=== PATIENT | male | born 1945 | race Caucasian/White ===

== ENCOUNTER → 2019-12-09 14:46 | Outpatient (BNVA) | payer MEDICARE, SELFPAY | PROVIDERS: PCP Internal Medicine Endocrinology, Diabetes & Metabolism; Visit Provider Urology | DX: Z76.89 Persons encountering health services in other specified circumstances (principal) | CPT/HCPCS: 99212 ==

== ENCOUNTER 2020-06-14 13:58 | Outpatient (REF) | payer MEDICARE, SELFPAY ==
--- NOTE | ~2020-06-14 | US_ITS ---
EXAMINATION: US RETROPERITONEAL LIMITED (RENAL ONLY) CLINICAL INFORMATION: Renal stones. COMPARISON: Ultrasound renal 10/12/2015 and 07/28/2013. TECHNIQUE: Real-time imaging of the kidneys. FINDINGS: RIGHT KIDNEY: 11.2 x 4.4 x 5.1 cm (SAG x AP x TRV). The kidney is normal in size, contour, and echogenicity. There is right renal cortical thinning. There is a 3.1 x 2.6 x 2.1 cm cyst exophytic to the lower pole. No renal calculi or hydronephrosis. LEFT KIDNEY: 12.4 x 5.9 x 5.7 cm (SAG x AP x TRV). The kidney is normal in size, contour, and echogenicity. There is left renal cortical thinning. There is a large 11.4 x 10.3 x 9 cm cyst exophytic to the midpole and 1.8 x 1.5 x 2.3 cm peripelvic cyst in the mid to lower pole. No renal calculi or hydronephrosis. US/US renal BI IMPRESSION: Bilateral renal cysts. Largest cyst measures 11.4 x 10.3 x 9 cm exophytic to the midpole of the left kidney and is stable. No stone seen. There may be bilateral renal cortical thinning.
== END 2020-06-14 13:59 | disposition home or self-care (01) ==
LOC: HO.US 13:58
PROVIDERS: PCP Internal Medicine Endocrinology, Diabetes & Metabolism; Visit Provider Urology
DX: N20.0 Calculus of kidney (principal); N28.1 Cyst of kidney, acquired
CPT/HCPCS: 76775

== ENCOUNTER → 2020-07-13 10:10 | Outpatient (BNVA) | payer MEDICARE, SELFPAY | PROVIDERS: Visit Provider Urology | DX: N28.1 Cyst of kidney, acquired (principal); N39.0 Urinary tract infection, site not specified; E11.49 Type 2 diabetes mellitus with other diabetic neurological complication; R33.9 Retention of urine, unspecified; Z79.4 Long term (current) use of insulin | CPT/HCPCS: 99212 ==

== ENCOUNTER → 2020-08-17 12:58 | Outpatient (BNVA) | payer MEDICARE, SELFPAY | PROVIDERS: PCP Internal Medicine Endocrinology, Diabetes & Metabolism; Visit Provider Urology | DX: N39.0 Urinary tract infection, site not specified (principal); R33.9 Retention of urine, unspecified; E11.49 Type 2 diabetes mellitus with other diabetic neurological complication; Z79.4 Long term (current) use of insulin | CPT/HCPCS: 52000; 99212 ==

== ENCOUNTER → 2021-05-10 14:05 | Outpatient (BNVA) | payer MEDICARE, SELFPAY | PROVIDERS: PCP Internal Medicine Endocrinology, Diabetes & Metabolism; Visit Provider Urology | DX: E11.49 Type 2 diabetes mellitus with other diabetic neurological complication (principal); N39.0 Urinary tract infection, site not specified; N28.1 Cyst of kidney, acquired; Z79.4 Long term (current) use of insulin | CPT/HCPCS: 51798; 99212 ==

== ENCOUNTER 2022-04-24 13:55 | Outpatient (REF) | payer MEDICARE, SELFPAY ==
--- NOTE | ~2022-04-24 | US_ITS ---
EXAMINATION: US RETROPERITONEAL LIMITED (RENAL ONLY) CLINICAL INFORMATION: Cyst of kidney, acquired. COMPARISON: Renal ultrasound 06/14/2020 and 10/12/2015. TECHNIQUE: Real-time imaging of the kidneys. FINDINGS: RIGHT KIDNEY: 12.0 x 4.8 x 5.3 cm (SAG x AP x TRV). The kidney is normal in size, contour, and echogenicity. Renal cortical thickness is normal. No renal calculi or hydronephrosis. Simple cysts largest in the lower pole measuring 2.8 cm, for which no imaging follow-up is recommended. LEFT KIDNEY: 13.3 x 4.8 x 4.0 cm (SAG x AP x TRV). The kidney is normal in size, contour, and echogenicity. Renal cortical thickness is normal. No renal calculi or hydronephrosis. Simple cysts including a dominant very large approximately 12.4 cm cyst exophytically from the medial surface, for which no imaging follow-up is recommended. US/US renal BI IMPRESSION: 1. No acute sonographic abnormalities. 2. Bilateral simple renal cysts for which no imaging follow-up is recommended.
== END 2022-04-24 13:56 | disposition home or self-care (01) ==
LOC: HO.US 13:55
PROVIDERS: PCP Internal Medicine Endocrinology, Diabetes & Metabolism; Visit Provider Urology
DX: N28.1 Cyst of kidney, acquired (principal)
CPT/HCPCS: 76775

== ENCOUNTER → 2022-05-09 13:48 | Outpatient (BNVA) | payer MEDICARE, SELFPAY | PROVIDERS: PCP Internal Medicine Endocrinology, Diabetes & Metabolism; Visit Provider Urology | DX: N39.0 Urinary tract infection, site not specified (principal); N28.1 Cyst of kidney, acquired; R33.9 Retention of urine, unspecified | CPT/HCPCS: 99212 ==

== ENCOUNTER 2022-09-01 10:33 | Outpatient (REF) | payer MEDICARE, SELFPAY ==
--- NOTE | ~2022-09-01 | XR_ITS ---
EXAMINATION: XR HIP, RIGHT CLINICAL INFORMATION: Right hip pain COMPARISON: None available. TECHNIQUE: Two views of the right hip. FINDINGS: No acute fracture or subluxation. The femoral acetabular joint space appears maintained. There are proliferative changes involving the superolateral aspect of the acetabulum and there are cystic/erosive changes of the proximal femur and acetabulum greatest superolaterally. There is some proliferative change involving the greater trochanter. Surgical clips project over the scrotum and there are vascular calcifications. XR/XR hip RT min 2V IMPRESSION: No acute fracture or subluxation. There are proliferative changes involving the acetabulum and proximal femur.
== END 2022-09-01 10:34 | disposition home or self-care (01) ==
LOC: HO.HOSX 10:33
PROVIDERS: Visit Provider Orthopaedic Surgery
DX: M25.551 Pain in right hip (principal); M54.50 Low back pain, unspecified; Z79.899 Other long term (current) drug therapy
CPT/HCPCS: 73502; 99202

== ENCOUNTER 2022-09-01 11:21 | Outpatient (AMB) | payer MEDICARE, SELFPAY ==
--- NOTE | 2022-09-01 11:46 | MHC.OFFVIS ---
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 He states that his symptoms have been present for approximately 10 years. He used to do quite a bit of lifting working for the [employer]. He denies any numbness or tingling in either of his legs. He continues to walk approximately 3 miles per day for exercise. Allergies oxycodone Allergy (Unknown, Verified 05/09/22 13:53) memory loss No Known Allergies [No Known Allergies*] Allergy (Verified 05/09/22 13:53) Medication List - Last Reconciled 09/01/22 by Homar Estrella MD acetaminophen ER (Tylenol Arthritis Pain) 1,300 mg PO Q12H amlodipine 10 mg PO DAILY atorvastatin 10 mg PO DAILY blood sugar diagnostic As directed dulaglutide 1.5 mg subcut QWEEK empagliflozin (Jardiance) 10 mg PO DAILY fenofibrate 160 mg PO DAILY metoprolol tartrate 50 mg PO BID modafinil 100 mg PO QAM multivitamin 1 tab PO DAILY nitrofurantoin macrocrystal 100 mg PO DAILY 90 days pioglitazone 30 mg PO DAILY sitagliptin phosphate 50 mg PO DAILY tamsulosin 0.4 mg PO DAILY PFSH Medical History Arthritis of both knees Depression DM w/o complication type II, uncontrolled GERD (gastroesophageal reflux disease) Primary osteoarthritis of left knee Primary osteoarthritis of right knee Surgical History History of surgery Social History (Updated 09/01/22 @ 12:00 by QUINN Garrison) Patient Tobacco Use Status: Former Tobacco user Current occupational status: disabled Physical Exam Vital Signs: BMI result Body Mass Index 28.0 Const Other: Well-nourished well-developed very friendly male awake alert and oriented x3 in no acute distress Extrem Other: Bilateral lower extremity examination shows good capillary refill, no skin lesions noted, normal sensation light touch Low back examination shows right-sided paraspinal muscle tenderness, mild pain with range of motion Right hip examination shows mild discomfort with range of motion, no tenderness over his bursa Results Reviewed Results Reviewed: X-rays of the patient's right hip show a mild diffuse joint space narrowing, no acute bony abnormalities Assessment & Plan Assessment & Plan (1) Right hip pain: Code(s): M25.551 - Pain in right hip (2) Low back pain: Code(s): M54.50 - Low back pain, unspecified Plan Mr. Saba presents with pain along the posterior aspect of his right hip most likely due to lumbar spine degenerative disc disease or sacroiliitis. I had a lengthy discussion with the patient regarding the treatment options. At this point the patient's symptoms are tolerable to him. We will hold off on getting an MRI of his lumbar spine. Activity modifications were discussed at length with the patient. He will follow up with me on an as-needed basis should his symptoms worsen in any way. Feel free to call me at any time should questions regarding his orthopedic management arise. I spent 23 minutes in reviewing the patient's records and imaging studies, seeing the patient and documenting in the medical record. Orders: Orders XR hip RT min 2V Today M25.551 - Pain in right hip Coding Level of Care Code New Pt Level 2 (34445) Diagnoses Right hip pain M25.551 Low back pain M54.50
[2022-09-01 11:54] VITALS: BMI 28.0
== END 2022-09-01 16:00 ==
PROVIDERS: PCP Internal Medicine Endocrinology, Diabetes & Metabolism; Visit Provider Physician Assistant
DX: M25.551 Pain in right hip (principal); M54.50 Low back pain, unspecified
CPT/HCPCS: 99202

== ENCOUNTER 2022-11-07 14:30 | Outpatient (AMB) | payer MEDICARE, SELFPAY ==
--- NOTE | 2022-11-07 14:31 | A.OFFVIS_ITS ---
Intake Intake Visit Reasons: 6m/urine Intake Note: Patient is Present for Telephone Follow Up Urology Medication: Macrobid, Tamsulosin Antibiotic Allergies: None Blood Thinners: None Pharmacy: [facility] Allergies oxycodone Allergy (Unknown, Verified 05/09/22 13:53) memory loss No Known Allergies [No Known Allergies*] Allergy (Verified 05/09/22 13:53) Medication List - Last Reconciled 11/07/22 by Devon Hicks MD acetaminophen ER (Tylenol Arthritis Pain) 1,300 mg PO Q12H amlodipine 10 mg PO DAILY blood sugar diagnostic As directed dulaglutide 1.5 mg subcut QWEEK metoprolol tartrate 50 mg PO BID modafinil 100 mg PO QAM multivitamin 1 tab PO DAILY nitrofurantoin macrocrystal 100 mg PO DAILY 90 days pioglitazone 30 mg PO DAILY sitagliptin phosphate 50 mg PO DAILY tamsulosin 0.4 mg PO DAILY HPI HPI Comments History of Present Illness Details Александр is a pleasant male. He is a patient of Dr. Berry. 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 Stable compared to prior. - 05/04 renal ultrasound large bilateral renal cysts stable BPH Three prior procedures Office based Last procedure 2009 - for per description sounds like thermocore PFSH Medical History Arthritis of both knees Depression DM w/o complication type II, uncontrolled GERD (gastroesophageal reflux disease) Primary osteoarthritis of left knee Primary osteoarthritis of right knee Surgical History History of surgery Social History Patient Tobacco Use Status: Former Tobacco user Current occupational status: disabled Review of Systems Const Denies chills and Denies fever(s) Card Reports no additional complaints and Denies syncope Resp Denies cough GI Denies abdominal pain and Denies heartburn Reports as per HPI and Denies change in libido Neuro Denies syncope Psych Denies change in libido Endo Denies change in libido Physical Exam Const General: cooperative, healthy appearing, comfortable and no acute distress Orientation/consciousness: patient oriented x3 HEENT Face and sinus: Yes normal facial exam Mouth: moist mucous membranes Neck Neck: Yes normal visual inspection, Yes full ROM and Yes trachea midline Chest Chest palpation & inspection: normal inspection of the chest Resp Effort & Inspection: normal respiratory effort, able to speak in complete sentences and no respiratory distress GI Inspection: Yes normal to inspection Back/Spine/Pelvis Cervical Spine: normal cervical lordosis Thoracic/Lumbar Spine: thoracic and lumbar spine normal to inspection Skin General skin exam: no rashes or lesions noted Neuro General: patient oriented x3, gait normal, tone normal and moves all extremities Extrem General: Yes normal to inspection and Yes capillary refill normal Assessment & Plan Assessment & Plan (1) Renal cyst: Code(s): N28.1 - Cyst of kidney, acquired (2) Diabetes mellitus with neurologic complication, with long-term current use of insulin: Code(s): E11.49 - Type 2 diabetes mellitus with other diabetic neurological complication; Z79.4 - terminal operations supervisor (current) use of insulin (3) Recurrent UTI: Code(s): N39.0 - Urinary tract infection, site not specified Plan Six month follow-up imaging Orders: Orders US renal BI 6 Months N28.1 - Cyst of kidney, acquired Medications: Refilled nitrofurantoin macrocrystal must administer with a meal/food 100 mg PO DAILY 90 caps 1RF 90 days Patient Instructions: Imaging studies, laboratory and physical exam results were discussed and rev iewed in detail. No major barriers to patient understanding were identified. An opportunity to ask questions regarding the treatment plan was provided. All questions were answered. The patient expressed understanding and agreement with the above treatment plan. The patient is aware they should contact our office by phone for worsening of their current condition or the appearance of new urologic symptoms. Compliance is encouraged with any medications and followup testing that is ordered. It is a privilege to participate in the urologic care of your patient. If you have any questions or concerns regarding treatment for the above conditions, or other urologic issues, please do not hesitate to contact me. The office telephone contact is [phone]. This note is constructed using voice recognition software. While every effort has been made to ensure accuracy senior communications engineer errors may have been included. Yours sincerely, Dr Devon Hicks MD, [facility] - Urology Providers of Expert, Compassionate Care for the Genitourinary System Telehealth Telehealth Location of provider rendering services: practice address Location of patient: address on file Patient Identification confirmed using: Name, : Yes Telehealth method: voice only Patient verbally consented to treatment: Yes Patient verbally consented to billing insurance company: Yes Patient informed of any privacy concerns related to visit: Yes Coding Level of Care Code Est Pt Level 3 (86264) Diagnoses Renal cyst N28.1 Diabetes mellitus with neurologic complication, with long-term current use of insulin E11.49; Z79.4 Recurrent UTI N39.0
== END 2022-11-07 14:59 | disposition home or self-care (01) ==
LOC: HO.HUSH 14:30
PROVIDERS: PCP Internal Medicine Endocrinology, Diabetes & Metabolism; Visit Provider Urology
DX: N28.1 Cyst of kidney, acquired (principal); E11.49 Type 2 diabetes mellitus with other diabetic neurological complication; Z79.4 Long term (current) use of insulin; N39.0 Urinary tract infection, site not specified
CPT/HCPCS: 99213

== ENCOUNTER → 2022-11-07 14:30 | Outpatient (BNVA) | payer MEDICARE, SELFPAY | PROVIDERS: PCP Internal Medicine Endocrinology, Diabetes & Metabolism; Visit Provider Urology | DX: N28.1 Cyst of kidney, acquired (principal); N39.0 Urinary tract infection, site not specified; N40.0 Benign prostatic hyperplasia without lower urinary tract symptoms; E11.49 Type 2 diabetes mellitus with other diabetic neurological complication; Z79.4 Long term (current) use of insulin | CPT/HCPCS: 99212 ==

== ENCOUNTER 2023-04-19 13:20 | Outpatient (REF) | payer MEDICARE, SELFPAY ==
--- NOTE | ~2023-04-19 | US_ITS ---
EXAMINATION: US RETROPERITONEAL LIMITED (RENAL ONLY) CLINICAL INFORMATION: Cyst of kidney, acquired. COMPARISON: Renal ultrasound 04/24/2022 and 06/14/2020. TECHNIQUE: Real-time imaging of the kidneys. FINDINGS: RIGHT KIDNEY: 11.8 x 4.8 x 5.0 cm (SAG x AP x TRV). There are 3.2 x 2.5 x 2.5 cm lower pole and 1.2 x 1.2 x 0.7 cm mid benign simple cysts. The kidney otherwise appears unremarkable in size, contour, and echogenicity. Renal cortical thickness is normal. No renal calculi or hydronephrosis. LEFT KIDNEY: 12.5 x 5.8 x 4.7 cm (SAG x AP x TRV). There are 13.3 x 10.3 x 8.1 cm mid lateral and 1.7 x 1.6 x 0.9 cm mid benign simple cysts. The kidney otherwise appears unremarkable in size, contour, and echogenicity. Renal cortical thickness is normal. No renal calculi or hydronephrosis. US/US renal BI IMPRESSION: 13.3 cm or less, benign bilateral simple cysts for which no further dedicated follow up imaging is indicated.
== END 2023-04-19 13:21 | disposition home or self-care (01) ==
LOC: HO.US 13:20
PROVIDERS: PCP Internal Medicine Endocrinology, Diabetes & Metabolism; Visit Provider Urology
DX: N28.1 Cyst of kidney, acquired (principal)
CPT/HCPCS: 76775

== ENCOUNTER 2023-05-11 13:24 | Outpatient (AMB) | payer MEDICARE, SELFPAY ==
--- NOTE | 2023-05-11 13:42 | A.OFFVIS_ITS ---
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 Design Drafter Required: No Accompanied by: Self / Same As Patient Allergies oxycodone Allergy (Unknown, Verified 05/11/23 13:53) memory loss No Known Allergies [No Known Allergies*] Allergy (Verified 05/11/23 13:53) Medication List - Last Reconciled 05/11/23 by Devon Hicks MD blood sugar diagnostic As directed blood-glucose sensor (FreeStyle Lawrence 3 Sensor device) As directed multivitamin 1 tab PO DAILY nitrofurantoin macrocrystal 100 mg PO DAILY 90 days sitagliptin phosphate 50 mg PO DAILY tadalafil 5 mg PO DAILY 90 days tadalafil 20 mg PO ONCE PRN 30 days tamsulosin 0.4 mg PO DAILY HPI HPI Comments History of Present Illness Details Александр is a pleasant male. He is a patient of Dr. Berry. 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 Stable compared to prior. - 05/04 renal ultrasound large bilateral renal cysts stable BPH Three prior procedures Office based Last procedure 2009 - for per description sounds like thermocore PFSH Medical History Depression GERD (gastroesophageal reflux disease) DM w/o complication type II, uncontrolled Primary osteoarthritis of left knee Primary osteoarthritis of right knee Arthritis of both knees Surgical History History of surgery Social History Patient Tobacco Use Status: Former Tobacco user Current occupational status: disabled Review of Systems Const Denies chills and Denies fever(s) Card Reports no additional complaints and Denies syncope Resp Denies cough GI Denies abdominal pain and Denies heartburn Reports as per HPI and Denies change in libido Neuro Denies syncope Psych Denies change in libido Endo Denies change in libido Physical Exam Const General: cooperative, healthy appearing, comfortable and no acute distress Orientation/consciousness: patient oriented x3 HEENT Face and sinus: Yes normal facial exam Mouth: moist mucous membranes Neck Neck: Yes normal visual inspection, Yes full ROM and Yes trachea midline Chest Chest palpation & inspection: normal inspection of the chest Resp Effort & Inspection: normal respiratory effort, able to speak in complete sentences and no respiratory distress GI Inspection: Yes normal to inspection Back/Spine/Pelvis Cervical Spine: normal cervical lordosis Thoracic/Lumbar Spine: thoracic and lumbar spine normal to inspection Skin General skin exam: no rashes or lesions noted Neuro General: patient oriented x3, gait normal, tone normal and moves all extremities Extrem General: Yes normal to inspection and Yes capillary refill normal Office Procedures Post Void Residual Post Residual Void Post Void Residual (PVR): 0 [id number] Void Residual by ultrasound Results AMB Urinalysis, Automated UA Leukoctes 0 Jaime/uL Last Edit by Emerald Steele [facility] on 05/11/23 14 :07 UA Nitrite Negative Last Edit by Emerald Steele [facility] on 05/11/23 14: 07 UA Urobilinogen 0.2 mg/dL Last Edit by Emerald Steele [facility] on 4 14:07 UA Protein 15 mg/dL Last Edit by Emerald Steele [facility] on 05/11/23 14:0 7 UA pH 6.0 Last Edit by Emerald Steele [facility] on 05/11/23 14:07 UA Blood 0 Valdez/uL Last Edit by Emerald Steele [facility] on 05/11/23 14:07 UA Specific [place] 1.015 Last Edit by Emerald Steele [facility] on 14:07 UA Ketone Negative Last Edit by Emerald Steele [facility] on 05/11/23 14:0 7 UA Bilirubin 0 mg/dL Last Edit by Emerald Steele [facility] on 05/11/23 14: 07 UA Glucose 0 mg/dL Last Edit by Emerald Steele CMA on 05/11/23 14:07 Results Reviewed Results Reviewed: Laboratory Last Values Urine pH (Auto) 6.0 05/11/23 13:52 Specific [place] (Auto) 1.015 05/11/23 13:52 Urine Protein (Auto) 15 mg/dL 05/11/23 13:52 Glucose (UA)(Auto) 0 mg/dL 05/11/23 13:52 Urine Ketones (Auto) Negative 05/11/23 13:52 Urine Blood (Auto) 0 Valdez/uL 05/11/23 13:52 Urine Nitrite (Auto) Negative 05/11/23 13:52 Urine Bilirubin (Auto) 0 mg/dL 05/11/23 13:52 Urine Urobilinogen (Auto) 0.2 mg/dL 05/11/23 13:52 Leukocyte Esterase (Auto) 0 Jaime/uL 05/11/23 13:52 Assessment & Plan Assessment & Plan (1) Recurrent UTI: Code(s): N39.0 - Urinary tract infection, site not specified (2) Erectile dysfunction associated with type 2 diabetes mellitus: Code(s): E11.69 - Type 2 diabetes mellitus with other specified complication; N52.1 - Erectile dysfunction due to diseases classified elsewhere Plan Three-month follow-up tele Orders: Orders AMB Urinalysis Automated Today R33.9 - Retention of urine, unspecified AMB Post Void Residual by ultrasound Today R33.9 - Retention of urine, unspecified Medications: New tadalafil 5 mg PO DAILY 90 days 90 tabs 0RF sexual activity E11.69 - Type 2 diabetes mellitus with other specified complication, N52.1 - Erectile dysfunction due to diseases classified elsewhere tadalafil On demand medication take 60 minutes before intended activity 20 mg PO ONCE 30 days PRN 30 tabs 0RF sexual activity E11.69 - Type 2 diabetes mellitus with other specified complication, N52.1 - Erectile dysfunction due to diseases classified elsewhere blood-glucose sensor (FreeStyle Lawrence 3 Sensor device) As directed 2 ea 0RF E11.69 - Type 2 diabetes mellitus with other specified complication, N52.1 - Erectile dysfunction due to diseases classified elsewhere Patient Instructions: Imaging studies, laboratory and physical exam results were discussed and reviewed in detail. No major barriers to patient understanding were identified. An opportunity to ask questions regarding the treatment plan was provided. All questions were answered. The patient expressed understanding and agreement with the above treatment plan. The patient is aware they should contact our office by phone for worsening of their current condition or the appearance of new urologic symptoms. Compliance is encouraged with any medications and followup testing that is ordered. It is a privilege to participate in the urologic care of your patient. If you have any questions or concerns regarding treatment for the above conditions, or other urologic issues, please do not hesitate to contact me. The office telephone contact is [phone]. This note is constructed using voice recognition software. While every effort has been made to ensure accuracy signals officer errors may have been included. Yours sincerely, Dr Devon Hicks MD, [facility] - Urology Providers of Expert, Compassionate Care for the Genitourinary System Coding Level of Care Code Est Pt Level 4 (96817) Diagnoses Recurrent UTI N39.0 Erectile dysfunction associated with type 2 diabetes mellitus E11.69; N52.1 CPT Codes Post Residual Void - PVR CPT Code: 16005-Rrxj Void Residual by ultrasound ([id number])
== END 2023-05-11 14:28 | disposition home or self-care (01) ==
PROVIDERS: PCP Internal Medicine Endocrinology, Diabetes & Metabolism; Visit Provider Urology
DX: N39.0 Urinary tract infection, site not specified (principal); E11.69 Type 2 diabetes mellitus with other specified complication; N52.1 Erectile dysfunction due to diseases classified elsewhere; R33.9 Retention of urine, unspecified
CPT/HCPCS: 99214

== ENCOUNTER → 2023-05-11 13:24 | Outpatient (BNVA) | payer MEDICARE, SELFPAY | PROVIDERS: PCP Internal Medicine Endocrinology, Diabetes & Metabolism; Visit Provider Urology | DX: N40.1 Benign prostatic hyperplasia with lower urinary tract symptoms (principal); R33.8 Other retention of urine; N39.0 Urinary tract infection, site not specified; E11.69 Type 2 diabetes mellitus with other specified complication; N52.1 Erectile dysfunction due to diseases classified elsewhere; N28.1 Cyst of kidney, acquired | CPT/HCPCS: 51798; 81003; 99212 ==

== ENCOUNTER 2023-08-14 15:45 | Outpatient (AMB) | payer MEDICARE, SELFPAY ==
--- NOTE | 2023-08-14 15:46 | MHC.OFFVIS ---
Intake Visit Reasons: 3M Med Review(Tadalafil) Intake Note: Patient is Present for Telephone Follow Up For Urology Med: Tadalafil Antibiotic Allergy:None Blood Thinner: None Allergies oxycodone Allergy (Unknown, Verified 05/11/23 13:53) memory loss No Known Allergies [No Known Allergies*] Allergy (Verified 05/11/23 13:53) HPI Comments Details: Александр is a pleasant male. He is a patient of Dr. Berry. He is seen for the following urologic issues - BPH - recurring UTI - renal cyst - erectile dysfunction Telemedicine Evaluation 15 min Consultation [facility] attempted Six-month follow-up Has noticed stabilized bladder with tadalafil. Will continue. He will continue with on demand medication. Would expect continued gradual improvement Discussed CGM - he has just started and is finding useful insight Recurring UTI Occurred twice during a 2019 Background diabetic requiring insulin Ended up with hospital admissions both times fire ambulance which he cannot remember Placed on suppression Macrodantin which appears to be effective Cystoscopy 08/02 large hypotonic bladder Renal cyst Stable Followed for 20 years Renal imaging 07/02 renal ultrasound bilateral renal cyst, left side 11 cm, right side 4 cm. Stable compared to prior. - 05/04 renal ultrasound large bilateral renal cysts stable Lower Urinary Tract Symptoms Three prior procedures Office based Last procedure 2009 - for per description sounds like thermocore PFSH Medical History Depression GERD (gastroesophageal reflux disease) DM w/o complication type II, uncontrolled Primary osteoarthritis of left knee Primary osteoarthritis of right knee Arthritis of both knees Surgical History History of surgery Social History Patient Tobacco Use Status: Former Tobacco user Current occupational status: disabled Review of Systems Const All systems reviewed & are unremarkable except as noted in HPI and below Reports no additional complaints Resp Reports no additional complaints GI Reports no additional complaints Reports as per HPI Musc Reports no additional complaints Physical Exam Telemedicine evaluation Appropriate responses Regular breathing rate and rhythm HEENT Head: Yes normal to inspection Ears: hearing grossly normal bilaterally Eyes General: appearance normal, both eyes and all related structures Neck Neck: Yes normal visual inspection Chest Chest palpation & inspection: normal inspection of the chest Resp Effort & Inspection: normal respiratory effort and able to speak in complete sentences Telehealth Telehealth Location of provider rendering services: practice address Location of patient: address on file Patient Identification confirmed using: Name, : Yes Telehealth method: voice only Patient verbally consented to treatment: Yes Patient verbally consented to billing insurance company: Yes Patient informed of any privacy concerns related to visit: Yes Assessment & Plan Assessment & Plan (1) Recurrent UTI: Code(s): N39.0 - Urinary tract infection, site not specified Category: Medical (2) Erectile dysfunction associated with type 2 diabetes mellitus: Code(s): E11.69 - Type 2 diabetes mellitus with other specified complication; N52.1 - Erectile dysfunction due to diseases classified elsewhere Category: Medical (3) Urinary retention with incomplete bladder emptying: Code(s): R33.9 - Retention of urine, unspecified Category: Medical Plan Continue current medications Six-month follow-up Medications: Refilled tadalafil 5 mg PO DAILY 90 days 90 tabs 1RF sexual activity E11.69 - Type 2 diabetes mellitus with other specified complication, N52.1 - Erectile dysfunction due to diseases classified elsewhere tadalafil On demand medication take 60 minutes before intended activity 20 mg PO ONCE 30 days PRN 30 tabs 1RF sexual activity E11.69 - Type 2 diabetes mellitus with other specified complication, N52.1 - Erectile dysfunction due to diseases classified elsewhere Patient Instructions: Imaging studies, laboratory and physical exam results were discussed and reviewed in detail. No major barriers to patient understanding were identified. An opportunity to ask questions regarding the treatment plan was provided. All questions were answered. The patient expressed understanding and agreement with the above treatment plan. The patient is aware they should contact our office by phone for worsening of their current condition or the appearance of new urologic symptoms. Compliance is encouraged with any medications and followup testing that is ordered. It is a privilege to participate in the urologic care of your patient. If you have any questions or concerns regarding treatment for the above conditions, or other urologic issues, please do not hesitate to contact me. The office telephone contact is [phone]. This note is constructed using voice recognition software. While every effort has been made to ensure accuracy floor tiling professional errors may have been included. Yours sincerely, Dr Devon Hicks MD, [facility] - Urology Providers of Expert, Compassionate Care for the Genitourinary System Coding Level of Care Code Tele Est Pt Level 3 (11926) Diagnoses Recurrent UTI N39.0 Erectile dysfunction associated with type 2 diabetes mellitus E11.69; N52.1 Urinary retention with incomplete bladder emptying R33.9
== END 2023-08-14 16:08 | disposition home or self-care (01) ==
LOC: HO.HUSH 15:45
PROVIDERS: PCP Internal Medicine Endocrinology, Diabetes & Metabolism; Visit Provider Urology
DX: N39.0 Urinary tract infection, site not specified (principal); E11.69 Type 2 diabetes mellitus with other specified complication; N52.1 Erectile dysfunction due to diseases classified elsewhere; R33.9 Retention of urine, unspecified
CPT/HCPCS: 99442

== ENCOUNTER → 2023-08-14 15:45 | Outpatient (BNVA) | payer MEDICARE, SELFPAY | PROVIDERS: PCP Internal Medicine Endocrinology, Diabetes & Metabolism; Visit Provider Urology ==

== ENCOUNTER 2024-02-19 12:53 | Outpatient (AMB) | payer MEDICARE, SELFPAY ==
--- NOTE | 2024-02-19 13:07 | A.OFFVIS_ITS ---
Intake Visit Reasons: 6M Med Review(Tadalafil) Allergies oxycodone Allergy (Unknown, Verified 05/11/23 13:53) memory loss No Known Allergies [No Known Allergies*] Allergy (Verified 05/11/23 13:53) HPI Comments Details: Александр is a pleasant male. He is a patient of Dr. Berry. He is seen for the following urologic issues - BPH - recurring UTI - renal cyst - erectile dysfunction Six-month follow-up Stabilized bladder with tadalafil with daily tadalafil He will continue with on demand medication. Would expect continued gradual improvement Discussed CGM - he has just started and is finding useful insight Recurring UTI Occurred twice during a 2019 Background diabetic requiring insulin Ended up with hospital admissions both times fire ambulance which he cannot remember Placed on suppression Macrodantin which appears to be effective Cystoscopy 08/02 large hypotonic bladder Renal cyst Stable Followed for 20 years Renal imaging 07/02 renal ultrasound bilateral renal cyst, left side 11 cm, right side 4 cm. Stable compared to prior. - 05/04 renal ultrasound large bilateral renal cysts stable Lower Urinary Tract Symptoms Three prior procedures Office based Last procedure 2009 - for per description sounds like thermocore Remains on tamsulosin PFSH Medical History Depression GERD (gastroesophageal reflux disease) DM w/o complication type II, uncontrolled Primary osteoarthritis of left knee Primary osteoarthritis of right knee Arthritis of both knees Surgical History History of surgery Social History Patient Tobacco Use Status: Former Tobacco user Current occupational status: disabled Results AMB Urinalysis, Automated UA Leukoctes 0 Jaime/uL Last Edit by ISABEL Coelho on 02/19/24 13:17 UA Nitrite Negative Last Edit by ISABEL Coelho on 02/19/24 13:17 UA Urobilinogen 0.2 mg/dL Last Edit by SIABEL Coelho on 02/19/24 13:1 7 UA Protein 30 mg/dL Last Edit by ISABEL Coelho on 02/19/24 13:17 UA pH 6.0 Last Edit by ISABEL Coelho on 02/19/24 13:17 UA Blood 0 Valdez/uL Last Edit by Rodney Bardales CCMA on 02/19/24 13:17 UA Specific [place] 1.020 Last Edit by ISABEL Coelho on 02/19/24 13: 17 UA Ketone Negative Last Edit by Rodney Bardales CCM on 02/19/24 13:17 UA Bilirubin 0 mg/dL Last Edit by ISABEL Coelho on 02/19/24 13:17 UA Glucose 0 mg/dL Last Edit by ISABEL Coelho on 02/19/24 13:17 Results Reviewed Results Reviewed: Laboratory Last Values Urine pH (Auto) 6.0 02/19/24 13:17 Specific [place] (Auto) 1.020 02/19/24 13:17 Urine Protein (Auto) 30 mg/dL 02/19/24 13:17 Glucose (UA)(Auto) 0 mg/dL 02/19/24 13:17 Urine Ketones (Auto) Negative 02/19/24 13:17 Urine Blood (Auto) 0 Valdez/uL 02/19/24 13:17 Urine Nitrite (Auto) Negative 02/19/24 13:17 Urine Bilirubin (Auto) 0 mg/dL 02/19/24 13:17 Urine Urobilinogen (Auto) 0.2 mg/dL 02/19/24 13:17 Leukocyte Esterase (Auto) 0 Jaime/uL 02/19/24 13:17 Assessment & Plan Assessment & Plan Orders: Orders AMB Urinalysis Automated Today Z13.9 - Encounter for screening, unspecified Coding
--- OUTSIDE RECORDS SUMMARY | 2024-02-19 15:04 | XMS_ITS | Continuity of Care Document ---
Author Organization [facility] [address] [place] [address] Phone [phone] Care Team Providers Care Methods Analyst Name Role Phone Luisito Berry M.D. Care Team Information Re ceiver [phone] Problems Active Problems Provider Date Type 2 diabetes mellitus Luisito Berry M.D. Onset: 12/06/2021 Essential hypertension Luisito Berry M.D. O nset: 12/06/2021 Multinodular goiter Luisito Berry M.D. Onse t: 12/06/2021 Obstructive sleep apnea syndrome Luisito spence M.D. Onset: 12/06/2021 Chronic kidney disease Luisito Berry M.D. O nset: 12/06/2021 Hyperlipidemia Luisito Berry M.D. Onset: 0 03/14/2022 Diabetes mellitus Luisito Berry M.D. Onset: 03/14/2022 Social History Type Date Description Comments Sex Unknown Lives With Alone ETOH Use Never used alcohol Tobacco Use Start: Unknown End: Unknown Patient is a former smoker Smoking Status Reviewed: 01/15/24 Patient is a former smoker Allergies and adverse reactions Description No Known Drug Allergies Medications Active Medications SIG Qnty Indications Order ing Provider Date Freestyle [place] 3 Plus/Sensor/Glucose Monitoring SystemMisc Use as directed for monitoring blood sugar. Replace sensor every 15 days. 6units E11.8 Luisito Berry M.D. 11/16/2023 [id number] Tablets 1 tab by mouth every evening 90tabs Luisito Berry M.D. 10/16/2023 Ketoconazole2% Cream apply twice daily as needed 45gm Luisito Berry M.D. 10/16/2023 Onetouch VerioStrips Use as Directed Three Times Daily Dx: E11.8 300units E11.8 Luisito Berry M.D. 05/15/2022 Tamsulosin HCL0.4mg Capsules Take 1 Capsule By Mouth Every Day 90caps Luisito Berry M.D. 11/09/2021 Nitrofurantoin [id number] Capsules 1 tab by mouth every day Devon Hicks [id number] Tablets Take 1 Tablet By Mouth Once Daily For Sexual Activity Devon Hicks History Medications Freestyle Lawrence 3/Sensor/Glucose Monitoring [id number] Misc as directed 3units Luisito zee M.D. 11/16/2023 - 11/16/2023 Freestyle [place] 3 Plus/Sesor/Glucose Monitoring SystemMisc as directed 3units Luisito Lara M.D. 10/16/2023 - 11/16/2023 [id number] Tablets 1 tab by mouth 1/2 hour prior to sexual activity 12tabs Luisito Berry M.D. 03/27/2023 - 10/16/2023 Vital Signs Date Vital Result Comment 01/15/2024 2:19pm BP Systolic 136 mmHg BP Diastolic 80 mmHg Heart Rate 72 /min Height 69 inches 5'9 Weight 194.25 lb BMI (Body Mass Index) 28.7 kg/m2 Results Test Acquired Date Facility Test Result H/L Range Note Laboratory test finding 01/15/2024 Inhouse Glucose Fingerstick 111 Lipid Panel 01/03/2024 [facility] Cholesterol, Total 141 mg/dL 100-199 Triglycerides 93 mg/dL 0-149 HDL Cholesterol 52 mg/dL >39 VLDL Cholesterol Jefesron 17 mg/dL 5-40 LDL Chol Calc ([facility]) 72 mg/dL 0-99 LDL Calc Comment: TNP Hemoglobin A1c 01/03/2024 [facility] Hemoglobin A1c 6.6 % High 4.8-5.6 1 Laboratory test finding 10/16/2023 Inhouse Glucose Fingerstick 108 Comp. Metabolic Panel (14) 09/26/2023 [facility] Glucose 126 mg/dL High 70-99 BUN 29 mg/dL High 8-27 Creatinine 1.46 mg/dL High 0.76-1.27 eGFR 49 mL/min/1.73 Low >59 BUN/Creatinine Ratio 20 10-24 Sodium 141 mmol/L 134-144 Potassium 4.5 mmol/L 3.5-5.2 Chloride 106 mmol/L 96-106 Carbon Dioxide, Total 23 mmol/L 20-29 Calcium 10.2 mg/dL 8.6-10.2 Protein, Total 6.5 g/dL 6.0-8.5 Albumin 4.3 g/dL 3.8-4.8 Globulin, Total 2.2 g/dL 1.5-4.5 Bilirubin, Total 0.5 mg/dL 0.0-1.2 Alkaline Phosphatase 73 IU/L 44-121 Ast (Sgot) 16 IU/L 0-40 Alt (SGPT) 15 IU/L 0-44 Lipid Panel 09/26/2023 [facility] Cholesterol, Total 200 mg/dL High 100-199 Triglycerides 140 mg/dL 0-149 HDL Cholesterol 55 mg/dL >39 VLDL Cholesterol [place] 25 mg/dL 5-40 LDL Chol Calc ([facility]) 120 mg/dL High 0-99 LDL Calc Comment: TNP Urinalysis, Complete 09/26/2023 [facility] Specific [place] 1.018 1.005-1.0 30 pH 6.0 5.0-7.5 Urine-Color Yellow Yellow Appearance Clear Clear WBC Esterase Negative Negative Protein Negative Negative/ Trace Glucose Negative Negative Ketones Negative Negative Occult Blood Negative Negative Bilirubin Negative Negative Urobilinogen,Se mi-Qn 0.2 mg/dL 0.2-1.0 Nitrite, Urine Negative Negative Microscopic Examination See Comment: 2 Microscopic Examination See below: 3 WBC None seen /hpf 0 - 5 RBC None seen /hpf 0 - 2 Epithelial Cells (non renal) None seen /hpf 0 - 10 Epithelial Cells (renal) TNP Casts None seen /lpf None seen Cast Type TNP Crystals TNP Crystal Type TNP Mucus Threads TNP Bacteria None seen None seen/Few Yeast TNP Trichomonas TNP Comment TNP Hemoglobin A1c 09/26/2023 [facility] Hemoglobin A1c 6.7 % High 4.8-5.6 4 CBC With Differential/Pl atelet 09/26/2023 [facility] WBC 4.8 x10E3/uL 3.4-10.8 RBC 4.81 x10E6/uL 4.14-5.80 Hemoglobin 13.7 g/dL 13.0-17.7 Hematocrit 43.6 % 37.5-51.0 MCV 91 fL 79-97 MCH 28.5 pg 26.6-33.0 MCHC 31.4 g/dL Low 31.5-35.7 RDW 13.3 % 11.6-15.4 Platelets 213 x10E3/uL 150-450 Neutrophils 46 % Not Estab. Lymphs 39 % Not Estab. Monocytes 9 % Not Estab. Eos 5 % Not Estab. Basos 1 % Not Estab. Immature Cells TNP Neutrophils (Absolute) 2.2 x10E3/uL 1.4-7.0 Lymphs (Absolute) 1.9 x10E3/uL 0.7-3.1 Monocytes([place]) 0.4 x10E3/uL 0.1-0.9 Eos (Absolute) 0.2 x10E3/uL 0.0-0.4 Baso (Absolute) 0.0 x10E3/uL 0.0-0.2 Immature Granulocytes 0 % Not Estab. Immature Grans (Abs) 0.0 x10E3/uL 0.0-0.1 NRBC TNP Hematology Comments: TNP Laboratory test finding 09/26/2023 [facility] TSH Rfx on Abnormal to Free T4 2.080 uIU/mL 0.450-4.5 00 Albumin/Creatin ine Ratio, Random Urine 09/26/2023 [facility] Creatinine, Urine 89.9 mg/dL Not Estab. Albumin, Urine 43.4 ug/mL Not Estab. Alb/Creat Ratio 48 mg/gcreat High 0-29 5 Laboratory test finding 06/25/2023 Inhouse Glucose Fingerstick 140 Laboratory test finding 03/27/2023 Inhouse Glucose Fingerstick 94 Hemoglobin A1c 6.1% Laboratory test finding 12/19/2022 Inhouse Glucose Fingerstick 136 Lipid Panel 11/27/2022 [facility] Cholesterol, Total 183 mg/dL (<200) Triglyceride 110 mg/dL (<150) HDL Chol 52 mg/dL (>39) LDL Cholesterol, Calculated 109 mg/dL (0-130) Non HDL Cholesterol (Calc) 131 mg/dL (<160) Laboratory test finding 11/27/2022 [facility] Hemoglobin A1c 6.1 % High (4.0-5.6) 6 C-Reactive Protein 0.3 mg/dL (0-0.5) Laboratory test finding 09/13/2022 Inhouse Glucose Fingerstick 124 Urinalysis Complete 08/29/2022 [facility] [id number] Duplicate order <SEE NOTE> 7 Urinary Microalbumin 08/29/2022 [facility] [id number] Duplicate order <SEE NOTE> 8 Laboratory test finding 08/29/2022 [facility] TSH With Reflex To FT4 Duplicate order <SEE NOTE> 9 Complete Abc With Diff 08/29/2022 [facility] [id number] Duplicate order <SEE NOTE> 10 Laboratory test finding 08/29/2022 [facility] Hemoglobin A1c Duplicate order <SEE NOTE> 11 Lipid Panel 08/29/2022 [facility] [id number] Duplicate order <SEE NOTE> 12 Comprehensive Metabolic Panl 08/29/2022 [facility] [id number] Duplicate order <SEE NOTE> 13 Laboratory test finding 08/29/2022 [facility] PSA 4.1 NG/ML High (0-4) 14 Urinary Microalbumin 08/29/2022 [facility] Micro-Albumin <12.0 mg/L (<20) 15 Malb/Creat Ratio Unable to calcul <SEE NOTE> MG/GM (0-20) 16 Urine Creat For Micro Albumin 158.4 mg/dL Laboratory test finding 08/29/2022 [facility] TSH With Reflex To FT4 2.67 uIU/mL (0.4-4.2) Complete Abc With Diff 08/29/2022 [facility] WBC 6.0 K/MM3 (4.0-11.0 ) RBC 4.72 M/MM3 (4.70-6.1 0) HGB 13.2 GM/DL Low (13.7-17. 1) HCT 41.1 % (40.5-50. 0) MCV 87.1 FL (80.0-94. 0) MCH 28.0 pg (27.0-34. 0) MCHC 32.1 g/dL Low (33.0-37. 0) PLT 224 K/MM3 (150-460) RDW-SD 45.2 FL (<47.0) MPV 10.0 FL (9.4-12.4 ) Automated NRBC 0.0 #/100WBC'S Abs. NRBC 0.0 K/MM3 Neut # 2.9 K/MM3 (1.3-7.0) Lymph # 2.3 K/MM3 (0.8-3.1) Dale# 0.6 K/MM3 (0.4-1.3) Eo # 0.2 K/MM3 (0.0-0.4) Baso # 0.0 K/MM3 (0.0-0.1) Abs. Imm Gran 0.0 K/MM3 Neut 48.8 % (44-76) Lymph 37.9 % (15-43) Monocyte 9.2 % (4.5-10.5 ) Eo 3.2 % (0-6) Baso 0.7 % (0-2) Imm Gran 0.2 % Laboratory test finding 08/29/2022 [facility] Hemoglobin A1c 6.1 % High (4.0-5.6) 17 Urinalysis Complete 08/29/2022 [facility] Appear/Color YELLOW 18 SP. [place] 1.022 (1.002-1. 030) Urine PH 5.5 (5.0-8.0) Urine Albumin NEGATIVE (Neg) Urine Glucose 4+ Abnormal (Neg) Urine Ketones NEGATIVE (Neg) Urine Bilirubin NEGATIVE (Neg) Urine Hemoglobin NEGATIVE (Neg) Urine Nitrite NEGATIVE (Neg) Urine Leukocyte NEGATIVE (Neg) Urobilinogen NORMAL mg/dL (Norm) Urine WBCs 1 /HPF (0-5) Urine RBCs 2 /HPF (0-3) Mucus SLIGHT /LPF Squamous Epith <1 /HPF (0-8) Lipid Panel 08/29/2022 [facility] Cholesterol, Total 164 mg/dL (<200) Triglyceride 120 mg/dL (<150) HDL Chol 48 mg/dL (>39) LDL Cholesterol, Calculated 92 mg/dL (0-130) Non HDL Cholesterol (Calc) 116 mg/dL (<160) Comprehensive Metabolic Panl 08/29/2022 [facility] Glucose 127 mg/dL High (70-99) BUN 19 mg/dL (8-23) Creatinine 1.6 mg/dL High (0.7-1.2) Sodium 142 mmol/L (133-145) Potassium 4.7 mmol/L (3.6-5.2) Chloride 108 mmol/L High (98-107) Bicarbonate 22 mmol/L (22-29) Anion Gap 12 (4-17) Albumin 4.5 GM/DL (3.4-4.8) Calcium 9.5 mg/dL (8.6-10.5 ) Bilirubin,Total 0.4 mg/dL (0-1.2 ) Total Protein 6.3 GM/DL (6.2-8.2 ) Ag Ratio 2.5 Ast 17 U/L (0-40) Alk Phos 55 U/L (40-129) Alt 13 U/L (0-41) Estimated GFR Creatinine 43 ML/MIN/1.73 M2 19 Laboratory test finding 06/13/2022 Inhouse Glucose Fingerstick 167 Hemoglobin A1c 5.9% Laboratory test finding 03/14/2022 Inhouse Glucose Fingerstick 164 Hemoglobin A1c 6.3% Comprehensive Metabolic Panl 01/24/2022 [facility] Glucose 204 mg/dL High (70-99) BUN 27 mg/dL High (8-23) Creatinine 2.2 mg/dL High (0.7-1.2) Sodium 140 mmol/L (133-145) Potassium 4.6 mmol/L (3.6-5.2) Chloride 107 mmol/L (98-107) Bicarbonate 21 mmol/L Low (22-29) Anion Gap 12 (4-17) Albumin 4.4 GM/DL (3.4-4.8) Calcium 10.2 mg/dL (8.6-10.5 ) Bilirubin,Total 0.3 mg/dL (0-1.2 ) Total Protein 6.9 GM/DL (6.2-8.2 ) Ag Ratio 1.8 Ast 19 U/L (0-40) Alk Phos 71 U/L (40-129) Alt 14 U/L (0-41) Estimated GFR Creatinine 31 ML/MIN/1.73 M2 20 Complete Abc With Diff 01/24/2022 [facility] WBC 6.6 K/MM3 (4.0-11.0 ) RBC 4.49 M/MM3 Low (4.70-6.1 0) HGB 12.4 GM/DL Low (13.7-17. 1) HCT 39.8 % Low (40.5-50. 0) MCV 88.6 FL (80.0-94. 0) MCH 27.6 pg (27.0-34. 0) MCHC 31.2 g/dL Low (33.0-37. 0) PLT 250 K/MM3 (150-460) RDW-SD 46.5 FL (<47.0) MPV 9.5 FL (9.4-12.4 ) Automated NRBC 0.0 #/100WBC'S Abs. NRBC 0.0 K/MM3 Neut # 3.2 K/MM3 (1.3-7.0) Lymph # 2.4 K/MM3 (0.8-3.1) Dale# 0.6 K/MM3 (0.4-1.3) Eo # 0.4 K/MM3 (0.0-0.4) Baso # 0.0 K/MM3 (0.0-0.1) Abs. Imm Gran 0.0 K/MM3 Neut 48.4 % (44-76) Lymph 36.5 % (15-43) Monocyte 8.9 % (4.5-10.5 ) Eo 5.3 % (0-6) Baso 0.6 % (0-2) Imm Gran 0.3 % Laboratory test finding 01/24/2022 Inhouse Glucose Fingerstick 211 Laboratory test finding 12/06/2021 Inhouse Hemoglobin A1c 5.9% Glucose Fingerstick 133 1 Prediabetes: 5.7 - 6 .4 Diabetes: >6.4 Glycemic control for adults with diabetes: <7.0 2 Microscopic follows if indicated. 3 Microscopic was alyssa cated and was performed. 4 Prediabetes: 5.7 - 6 .4 Diabetes: >6.4 Glycemic control for adults with diabetes: <7.0 5 Normal: 0 - 29 Moderately increased: 30 - 300 Severely increased: >300 6 MONITORING: In known diabetic patients, hemoglobin A1c targets should be discussed with health care provider. DIAGNOSTIC USE: The [place] [employer] (ADA) and the World Health Organization (WHO) recommend the use of HbA1c to diagnose diabetes using a threshold of 6.5%. Patients who have an HbA1c between 5.7% and 6.4% are considered at increased risk for developing diabetes in the future. CAUTION: Falsely low HbA1c results may be observed in patients with hemolytic anemia, homozygous forms of abnormal hemoglobin (e.g. SS, CC, SC), , recent blood loss or hemoglobin F greater than 7%. Fructosamine may be used as an alternate test in these cases. REFERENCE: ADA: Standards of Medical Care in Diabetes 2020, The Journal of Clinical and Applied Research and Education Volume 43, Supplement 1 7 Duplicate order canc elled via interface 8 Duplicate order canc elled via interface 9 Duplicate order canc elled via interface 10 Duplicate order canc elled via interface 11 Duplicate order canc elled via interface 12 Duplicate order canc elled via interface 13 Duplicate order canc elled via interface 14 TEST PERFORMED USING THE SHANTA ELECTROCHEMILLUMINESCENCE TOTAL PSA ASSAY. PSA VALUES OBTAINED WITH OTHER ASSAY METHODS OR KITS CANNOT BE USED INTERCHANGEABLY. 15 The urine microalbum in test is designed to monitor renal function. When screening for Bence Suarez proteinuria, urine electrophoresis is recommended. 16 Unable to calculate 17 MONITORING: In known diabetic patients, hemoglobin A1c targets should be discussed with health care provider. DIAGNOSTIC USE: The [place] [employer] (ADA) and the World Health Organization (WHO) recommend the use of HbA1c to diagnose diabetes using a threshold of 6.5%. Patients who have an HbA1c between 5.7% and 6.4% are considered at increased risk for developing diabetes in the future. CAUTION: Falsely low HbA1c results may be observed in patients with hemolytic anemia, homozygous forms of abnormal hemoglobin (e.g. SS, CC, SC), , recent blood loss or hemoglobin F greater than 7%. Fructosamine may be used as an alternate test in these cases. REFERENCE: ADA: Standards of Medical Care in Diabetes 2020, The Journal of Clinical and Applied Research and Education Volume 43, Supplement 1 18 CLEAR 19 Creatinine based est imated glomerular filtration (eGFR) in adults is calculated using the National Kid[employer] recommended 2021 CKD-EPI equation. Estimates GFR from serum creatinine, age and sex. 20 Creatinine based est imated glomerular filtration (eGFR) in adults is calculated using the National Kidney Foundation recommended 2021 CKD-EPI equation. Estimates GFR from serum creatinine, age and sex. Procedures Date Code Description Status 10/02/2023 NSHOWOFF No Show Office Visit Complet ed Medical Devices Description No Information Available Encounters Type Date Location Provider Dx Diagnosis Office Visit 01/15/2024 2:15p Main Office Luisito Berry M.D. E11.8 Type 2 diabetes mellitus with unspecified complications N18.9 Chronic kidney disea se, unspecified I10 Essential (primary) hypertension Assessments Date Code Description Provider 01/15/2024 E11.8 Type 2 diabetes mellitus with unspecified complications Luisito Berry M.D. 01/15/2024 N18.9 Chronic kidney disease Luisito Berry M.D. 01/15/2024 I10 Essential (primary) hyperten lam Luisito Berry M.D. Plan of Treatment Future Appointment(s):* 05/20/2024 1:30 pm - Luisito Berry M.D. at Main Office 01/15/2024 - Luisito Berry M.D.* E11.8 Type 2 diabetes mellitus with unspecified complications * N18.9 Chronic kidney disease * I10 Essential (primary) hypertension Functional Status Description No Information Available Mental Status Description No Information Available Referrals Description No Information Available
== END 2024-02-19 13:56 | disposition home or self-care (01) ==
PROVIDERS: PCP Internal Medicine Endocrinology, Diabetes & Metabolism; Visit Provider Urology
DX: Z13.9 Encounter for screening, unspecified (principal)

== ENCOUNTER → 2024-02-19 12:53 | Outpatient (BNVA) | payer MEDICARE, SELFPAY | PROVIDERS: PCP Internal Medicine Endocrinology, Diabetes & Metabolism; Visit Provider Urology | DX: E11.69 Type 2 diabetes mellitus with other specified complication (principal); N52.1 Erectile dysfunction due to diseases classified elsewhere; R33.9 Retention of urine, unspecified | CPT/HCPCS: 81003; 99212 ==

== ENCOUNTER 2024-08-19 13:37 | Outpatient (AMB) | payer MEDICARE, SELFPAY ==
--- NOTE | 2024-08-19 13:37 | A.OFFVIS_ITS ---
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 He is a patient of Dr. Berry. He is seen for the following urologic issues - BPH - recurring UTI - renal cyst - erectile dysfunction Six-month follow-up Telemedicine Evaluation 15 min Consultation Poacht App Heron Video Continued stabilized bladder with tadalafil with daily tadalafil It did have some breathlessness relatively recently. We will stop nitrofurantoin. Start trimethoprim for suppression. He will continue with on demand medication. Would expect continued gradual improvement Recurring UTI Occurred twice during a 2019 Background diabetic requiring insulin Ended up with hospital admissions both times ambulance which he cannot remember Previously on Macrodantin although had some pulmonary symptoms Cystoscopy 08/02 large hypotonic bladder Renal cyst Stable Followed for 20 years Renal imaging 07/02 renal ultrasound bilateral renal cyst, left side 11 cm, right side 4 cm. Stable compared to prior. - 05/04 renal ultrasound large bilateral renal cysts stable Lower Urinary Tract Symptoms Three prior procedures Office based Last procedure 2009 - for per description sounds like thermocore Remains on tamsulosin PFSH Medical History Depression GERD (gastroesophageal reflux disease) DM w/o complication type II, uncontrolled Primary osteoarthritis of left knee Primary osteoarthritis of right knee Arthritis of both knees Surgical History History of surgery Social History Patient Tobacco Use Status: Former Tobacco user Current occupational status: disabled Review of Systems Const All systems reviewed & are unremarkable except as noted in HPI and below Reports no additional complaints Resp Reports no additional complaints GI Reports no additional complaints Reports as per HPI Musc Reports no additional complaints Physical Exam Telemedicine evaluation Appropriate responses Regular breathing rate and rhythm HEENT Head: Yes normal to inspection Ears: hearing grossly normal bilaterally Eyes General: appearance normal, both eyes and all related structures Neck Neck: Yes normal visual inspection Chest Chest palpation & inspection: normal inspection of the chest Resp Effort & Inspection: normal respiratory effort and able to speak in complete sentences Telehealth Telehealth Telehealth Platform: Poacht App Location of provider rendering services: practice address Location of patient: address on file Patient Identification confirmed using: Name, : Yes Telehealth method: voice only Patient verbally consented to treatment: Yes Patient verbally consented to billing insurance company: Yes Patient informed of any privacy concerns related to visit: Yes Minutes spent on Phone/Video with Pt.: 15 Assessment & Plan Assessment & Plan (1) Erectile dysfunction associated with type 2 diabetes mellitus: Code(s): E11.69 - Type 2 diabetes mellitus with other specified complication; N52.1 - Erectile dysfunction due to diseases classified elsewhere Category: Medical (2) Recurrent UTI: Code(s): N39.0 - Urinary tract infection, site not specified Category: Medical (3) Urinary retention with incomplete bladder emptying: Code(s): R33.9 - Retention of urine, unspecified Category: Medical Plan Six-month follow-up office PVR Medications: New trimethoprim 100 mg PO DAILY 90 tabs 1RF 90 days N39.0 - Urinary tract infection, site not specified, R33.9 - Retention of urine, unspecified Changed From tamsulosin 0.4 mg PO DAILY N39.0 - Urinary tract infection, site not specified To tamsulosin 0.4 mg PO DAILY 90 caps 1RF 90 days N39.0 - Urinary tract infection, site not specified Refilled tadalafil 5 mg PO DAILY 90 tabs 1RF sexual activity 90 days E11.69 - Type 2 diabetes mellitus with other specified complication, N52.1 - Erectile d ysfunction due to diseases classified elsewhere Discontinued nitrofurantoin macrocrystal must administer with a meal/food Discontinued Reason: Patient Completed Course 100 mg PO DAILY 90 days 90 caps 0RF N39.0 - Urinary tract infection, site not specified Patient Instructions: This note is constructed using voice recognition software. While every effort has been made to ensure accuracy stakeholder manager errors may have been included. Imaging studies, laboratory and physical exam results were discussed and reviewed in detail. No major barriers to patient understanding were identified. An opportunity to ask questions regarding the treatment plan was provided. All questions were answered. The patient expressed understanding and agreement with the above treatment plan. The patient is aware they should contact our office by phone for worsening of their current condition or the appearance of new urologic symptoms. Compliance is encouraged with any medications and followup testing that is ordered. It is a privilege to participate in the urologic care of your patient. If you have any questions or concerns regarding treatment for the above conditions, or other urologic issues, please do not hesitate to contact me. The office telephone contact is [phone]. Sincerely, Dr Devon Hicks MD, [facility] - Urology Compassionate Specialist Care for the Genitourinary System Coding Level of Care Code Tele Est Pt Level 3 (31481) Complex EM visit Add On G2211 Diagnoses Erectile dysfunction associated with type 2 diabetes mellitus E11.69; N52.1 Recurrent UTI N39.0 Urinary retention with incomplete bladder emptying R33.9
--- OUTSIDE RECORDS SUMMARY | 2024-08-19 14:21 | XMS_ITS | Continuity of Care Document ---
Author Organization [facility] [address] [place] [address] Phone [phone] Care Team Providers Care It Compliance Manager Name Role Phone Luisito Berry M.D. Care Team Information Re ceiver [phone] Problems Active Problems Provider Date Type 2 [...] Social History Type Date Description Comments Sex Male Sex Unknown Lives With Alone ETOH Use Never used alcohol Tobacco Use Start: Unknown End: Unknown Patient is a former smoker Smoking Status Reviewed: 05/20/24 Patient is a former smoker Allergies and adverse reactions Description No Known Drug Allergies Medications Active Medications SIG Qnty Indications Order ing Provider Date Freestyle Lawrence 3 Plus/Sensor/Glucose Monitoring SystemMisc Use as directed for monitoring blood sugar. Replace sensor every 15 days. 6units E11.8 Luisito Berry M.D. 11/16/2023 [id number] Tablets 1 tab by mouth every evening 90tabs Luisito Berry M.D. 10/16/2023 Ketoconazole2% Cream apply twice daily as needed 45gm Luisito Berry M.D. 10/16/2023 Onetouch VerioStrips Use as Directed Three Times Daily Dx: E11.8 300units E11.8 Luisito Berry M.D. 05/15/2022 Tamsulosin HCL0.4mg Capsules Take 1 Capsule By Mouth Every Day 90caps Luisito Berry M.D. 11/09/2021 Nitrofurantoin [id number] Capsules 1 tab by mouth every day Devon Hicks [id number] Tablets Take 1 Tablet By Mouth Once Daily For Sexual Activity Devon Hicks History Medications Freestyle Lawrence 3/Sensor/Glucose Monitoring [id number] Misc as directed 3units Luisito zee M.D. 11/16/2023 - 11/16/2023 Freestyle Lawrence 3 Plus/Sesor/Glucose Monitoring SystemMisc as directed 3units Luisito Lara M.D. 10/16/2023 - 11/16/2023 Vital Signs Date Vital Result Comment 05/20/2024 1:43pm BP Systolic 130 mmHg BP Diastolic 55 mmHg Heart Rate 72 /min Height 69 inches 5'9 Weight 194.25 lb BMI (Body Mass Index) 28.7 kg/m2 Results Test Acquired Date Facility Test Result H/L Range Note Hemoglobin A1c 05/20/2024 Inhouse Hemoglobin A1c 6.5% Glucose Fingerstick 05/20/2024 Inhouse Glucose Fingerstick 185 Glucose Fingerstick 01/15/2024 Inhouse Glucose Fingerstick 111 Lipid Panel 01/03/2024 [facility] Cholesterol, Total 141 mg/dL 100-199 Triglycerides 93 mg/dL 0-149 HDL Cholesterol 52 mg/dL >39 VLDL Cholesterol Jeferson 17 mg/dL 5-40 LDL Chol Calc ([facility]) 72 mg/dL 0-99 LDL Calc Comment: TNP Hemoglobin A1c 01/03/2024 [facility] Hemoglobin A1c 6.6 % High 4.8-5.6 1 Glucose Fingerstick 10/16/2023 Inhouse Glucose Fingerstick 108 Comp. Metabolic [...] Jeferson 25 mg/dL 5-40 LDL Chol Calc ([facility]) 120 mg/dL High 0-99 LDL Calc Comment: TNP Urinalysis, Complete 09/26/2023 [facility] Specific Rumsey 1.018 1.005-1.0 30 pH 6.0 5.0-7.5 Urine-Color [...] 1.4-7.0 Lymphs (Absolute) 1.9 x10E3/uL 0.7-3.1 Monocytes(Absol zo) 0.4 x10E3/uL 0.1-0.9 Eos (Absolute) 0.2 x10E3/uL 0.0-0.4 Baso (Absolute) 0.0 x10E3/uL 0.0-0.2 Immature Granulocytes 0 % Not Estab. Immature Grans (Abs) 0.0 x10E3/uL 0.0-0.1 NRBC TNP Hematology Comments: TNP TSH Rfx on Abnormal to Free T4 09/26/2023 [facility] TSH Rfx on Abnormal to Free T4 2.080 uIU/mL 0.450-4.5 00 Albumin/Creatin ine Ratio, Random Urine 09/26/2023 [facility] Creatinine, Urine 89.9 mg/dL Not Estab. Albumin, Urine 43.4 ug/mL Not Estab. Alb/Creat Ratio 48 mg/gcreat High 0-29 5 Glucose Fingerstick 06/25/2023 Inhouse Glucose Fingerstick 140 Hemoglobin A1c 03/27/2023 Inhouse Hemoglobin A1c 6.1% Glucose Fingerstick 03/27/2023 Inhouse Glucose Fingerstick 94 Glucose Fingerstick 12/19/2022 Inhouse Glucose Fingerstick 136 C-Reactive Protein 11/27/2022 [facility] C-Reactive Protein 0.3 mg/dL (0-0.5) Lipid Panel 11/27/2022 [facility] Cholesterol, Total 183 mg/dL (<200) Triglyceride 110 mg/dL (<150) HDL Chol 52 mg/dL (>39) LDL Cholesterol, Calculated 109 mg/dL (0-130) Non HDL Cholesterol (Calc) 131 mg/dL (<160) Hemoglobin A1c 11/27/2022 [facility] Hemoglobin A1c 6.1 % High (4.0-5.6) 6 Glucose Fingerstick 09/13/2022 Inhouse Glucose Fingerstick 124 Complete Abc With Diff 08/29/2022 [facility] [id number] Duplicate order <SEE NOTE> 7 Urinary Microalbumin 08/29/2022 [facility] [id number] Duplicate order <SEE NOTE> 8 TSH With Reflex To FT4 08/29/2022 [facility] TSH With Reflex To FT4 Duplicate order <SEE NOTE> 9 Hemoglobin A1c 08/29/2022 [facility] Hemoglobin A1c Duplicate order <SEE NOTE> 10 Urinalysis Complete 08/29/2022 [facility] [id number] Duplicate order <SEE NOTE> 11 Lipid Panel 08/29/2022 [facility] [id number] Duplicate order <SEE NOTE> 12 Comprehensive Metabolic Panl 08/29/2022 [facility] [id number] Duplicate order <SEE NOTE> 13 Urinary Microalbumin 08/29/2022 [facility] Micro-Albumin <12.0 mg/L (<20) 14 Malb/Creat Ratio Unable to calcul <SEE NOTE> MG/GM (0-20) 15 Urine Creat For Micro Albumin 158.4 mg/dL Comprehensive Metabolic Panl 08/29/2022 [facility] Glucose 127 mg/dL High [...] (0-41) Estimated GFR Creatinine 43 ML/MIN/1.73 M2 16 Lipid Panel 08/29/2022 [facility] Cholesterol, Total 164 mg/dL (<200) Triglyceride 120 mg/dL (<150) HDL Chol 48 mg/dL (>39) LDL Cholesterol, Calculated 92 mg/dL (0-130) Non HDL Cholesterol (Calc) 116 mg/dL (<160) Urinalysis Complete 08/29/2022 [facility] Appear/Color YELLOW 17 SP. Rumsey 1.022 (1.002-1. 030) Urine PH 5.5 (5.0-8.0) Urine Albumin NEGATIVE (Neg) Urine Glucose 4+ Abnormal (Neg) Urine Ketones NEGATIVE (Neg) Urine Bilirubin NEGATIVE (Neg) Urine Hemoglobin NEGATIVE (Neg) Urine Nitrite NEGATIVE (Neg) Urine Leukocyte NEGATIVE (Neg) Urobilinogen NORMAL mg/dL (Norm) Urine WBCs 1 /HPF (0-5) Urine RBCs 2 /HPF (0-3) Mucus SLIGHT /LPF Squamous Epith <1 /HPF (0-8) Hemoglobin A1c 08/29/2022 [facility] Hemoglobin A1c 6.1 % High (4.0-5.6) 18 Complete Abc With Diff 08/29/2022 [facility] WBC 6.0 K/MM3 (4.0-11.0 [...] K/MM3 (1.3-7.0) Lymph # 2.3 K/MM3 (0.8-3.1) [place]# 0.6 K/MM3 (0.4-1.3) Eo # 0.2 K/MM3 (0.0-0.4) Baso # 0.0 K/MM3 (0.0-0.1) Abs. Imm Gran 0.0 K/MM3 Neut 48.8 % (44-76) Lymph 37.9 % (15-43) Monocyte 9.2 % (4.5-10.5 ) Eo 3.2 % (0-6) Baso 0.7 % (0-2) Imm Gran 0.2 % TSH With Reflex To FT4 08/29/2022 [facility] TSH With Reflex To FT4 2.67 uIU/mL (0.4-4.2) PSA 08/29/2022 [facility] PSA 4.1 NG/ML High (0-4) 19 Glucose Fingerstick 06/13/2022 Inhouse Glucose Fingerstick 167 Hemoglobin A1c 06/13/2022 Inhouse Hemoglobin A1c 5.9% Glucose Fingerstick 03/14/2022 Inhouse Glucose Fingerstick 164 Hemoglobin A1c 03/14/2022 Inhouse Hemoglobin A1c 6.3% Comprehensive Metabolic Panl 01/24/2022 [facility] Glucose 204 mg/dL High [...] M2 20 Complete Abc With Diff 01/24/2022 [facility] WBC 6.6 K/MM3 (4.0-11.0 [...] K/MM3 (1.3-7.0) Lymph # 2.4 K/MM3 (0.8-3.1) [place]# 0.6 K/MM3 (0.4-1.3) Eo # 0.4 K/MM3 (0.0-0.4) Baso # 0.0 K/MM3 (0.0-0.1) Abs. Imm Gran 0.0 K/MM3 Neut 48.4 % (44-76) Lymph 36.5 % (15-43) Monocyte 8.9 % (4.5-10.5 ) Eo 5.3 % (0-6) Baso 0.6 % (0-2) Imm Gran 0.3 % Glucose Fingerstick 01/24/2022 Inhouse Glucose Fingerstick 211 Hemoglobin A1c 12/06/2021 Inhouse Hemoglobin A1c 5.9% Glucose Fingerstick 12/06/2021 Inhouse Glucose Fingerstick 133 1 Prediabetes: 5.7 - [...] with health care provider. DIAGNOSTIC USE: The [place] [employer] (ADA) and the World Health [...] Duplicate order canc elled via interface 14 The urine microalbum in test is designed to monitor renal function. When screening for Bence Suarez proteinuria, urine electrophoresis is recommended. 15 Unable to calculate 16 Creatinine based est imated glomerular filtration (eGFR) in adults is calculated using the National Kidney Foundation recommended 202 CKD-EPI equation. Estimates GFR from serum creatinine, age and sex. 17 CLEAR 18 MONITORING: In known diabetic patients, hemoglobin A1c targets should be discussed with health care provider. DIAGNOSTIC USE: The [place] [employer] (ADA) and the World Health [...] Research and Education Volume 43, Supplement 1 19 TEST PERFORMED USING THE SHANTA ELECTROCHEMILLUMINESCENCE TOTAL PSA ASSAY. PSA VALUES OBTAINED WITH OTHER ASSAY METHODS OR KITS CANNOT BE USED INTERCHANGEABLY. 20 Creatinine based est imated glomerular filtration (eGFR) in adults is calculated using the National Kidney Foundation recommended 2021 CKD-EPI equation. Estimates GFR from serum creatinine, age and sex. Procedures Date Code Description Status 10/02/2023 NSHOWOFF No Show Office Visit Complet ed Medical Devices Description No Information Available Encounters Type Date Location Provider Dx Diagnosis Office Visit 05/20/2024 1:30p Main Office Luisito Berry M.D. 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 05/20/2024 I10 Hypertensive disorder Luisito victoria M.D. 05/20/2024 E04.2 Multinodular goiter Luisito Hobson M.D. 05/20/2024 N18.9 Chronic kidney disease Luisito Berry M.D. Plan of Treatment Future Appointment(s):* 09/30/2024 1:15 pm - Luisito Berry M.D. at Main Office 05/20/2024 - Luisito Berry M.D.* E11.8 Type 2 diabetes mellitus with unspecified complications * I10 Hypertensive disorder * E04.2 Multinodular goiter * N18.9 Chronic kidney disease Functional Status Description No Information Available Mental Status Description No Information Available Referrals Description No Information Available
--- OUTSIDE RECORDS SUMMARY | 2024-08-19 14:21 | XMS_ITS | Clinical Summary ---
Author Organization [facility] [address] [facility] Address [address] [place] [address] Phone Care Team Providers Care Ply Splicer Name Role Phone Luisito Berry MD Primary Care Provider [phone] Allergies No known active allergies Medications nitrofurantoin (MACRODANTIN) 100 mg capsule Take 1 capsule (100 mg total) by mouth 1 (one) time each day. with food 5 Active tadalafiL (CIALIS) 5 mg tablet TAKE ONE TABLET BY MOUTH APPROXIMATELY ONE HOUR BEFORE SEXUAL ACTIVITY. DO NOT USE MORE THAN ONE DOSE DAILY 4 Active tamsulosin (FLOMAX) 0.4 mg 24 hr capsule Take 1 capsule (0.4 mg total) by mouth 1 (one) time each day. 5 Active magnesium glycinate (MAG GLYCINATE ORAL) Take 120 mg by mouth 2 (two) times a day. Active multivitamin tablet Take 1 tablet by mouth 1 (one) time each day. Active Crestor 5 mg tablet Take by mouth. 4 Active Active Problems Problem Noted Date Diagnosed Date UTI (urinary tract infection) 05/19/2024 Type 2 diabetes mellitus, wi thout long-term current use of insulin ([facility] V24, [facility] V28) 05/19/2024 Overview (05/19/2024): Diet controlled/no medications HTN (hypertension) 05/19/2024 Encounters Date Type Department Care Team Description 07/03/2024 Telephone Gastroenterology - [address] [place] [address] Cherelle Serna [place] Results 06/30/2024 2:43 PM EDT Anesthesia Event [facility] Endoscopy [address] [place] [address] Geraldo Amador MD 06/30/2024 2:07 PM EDT - 06/30/2024 11:59 PM EDT Hospital Encounter [facility] End[facility] [address] [place] [address] David Buenrostro MD Dasilva, John E, MD Morrison esophagus; Change in bowel movement; BRBPR (bright red blood per rectum); Personal history of other colon polyps; Mucus in stool Discharge Disposition: Home or Self Care from Last 3 Months Surgical History Surgery Date Site/Laterality Comments COLONOSCOPY 02/12/2021 - 03/14/2021 TA x5 (4 of 5 >1cm), sig tics (1 yr) COLONOSCOPY 06/12/2022 - 07/12/2022 TA x2 (5 to 6mm), sig tics ( 5yr) ESOPHAGOGASTRODUODENOSCOPY 02/12/2021 - 03/14/2021 barretts without dysplasia (3 yr) TOTAL KNEE ARTHROPLASTY Bilateral Medical History Medical History Date Comments Hypertension Hyperlipidemia Enlarged prostate Sleep apnea treated with con tinuous positive airway pressure (CPAP) Skin cancer BCC, SQUAMOUS CE LL Social History Tobacco Use Types Packs/Day Years Used Date Smoking Tobacco: Former Cigarettes Smokeless Tobacco: Never Tobacco Cessation:Counseling Given: Not Answered Alcohol Use Standard Drinks/Week Comments Not Currently 0 (1 standard drink = 0.6 oz pur e alcohol) Interpersonal Safety Answer Date Record ed Physical Abuse 06/30/2024 Verbal Abuse 06/30/2024 Sex and Gender Information Value Date Recorded Sex Assigned at Not on file Legal Sex Male 4:06 PM EST Gender Identity Not on file Sexual Orientation Not on file Obstetrics History Last Filed Vital Signs Vital Sign Reading Time Taken Comments Blood Pressure 121/69 06/30/2024 3:42 PM EDT Pulse 57 06/30/2024 3:42 PM EDT Temperature 36.8 C (98.2 F) 06/30/2024 3:22 PM EDT Respiratory Rate 16 06/30/2024 3:42 PM EDT Oxygen Saturation 98% 06/30/2024 3:42 PM EDT Inhaled Oxygen Concentration - - Weight 88.5 kg (195 lb) 06/20/2024 12:00 PM EDT Height 177.8 cm (5' 10 ) 06/20/2024 12:00 PM EDT Body Mass Index 27.98 06/20/2024 12:00 PM EDT Plan of Treatment Health Maintenance Due Date Last Done Comments Diabetes: Annual GFR (Glomerular Filtration Rate) 1945 Diabetes: Annual Foot Exam 11/17/1953 Diabetes: Annual Retina Eye Exam 11/17/1953 Zoster Vaccines (1 of 2) 11/17/1962 Cholesterol Screening (Lipid Panel) 01/11/2022 08/20/2016 Depression Screening 01/11/2022 Medicare Annual Wellness Visit 01/11/2022 Social Influencers of Health Screening 01/11/2022 Diabetes: Annual Urine Albumin-Creatinine Ratio (uACR) 05/19/2024 Diabetes: Blood Sugar Control Test (HGBA1C) 05/19/2024 Hypertension/CHF/CAD Annual BMP Blood Test 05/19/2024 COVID-19 Vaccine (8 - Moderna risk season) 2024 12/13/2023, 11/09/2022, 01/09/2022, Additional history exists Influenza Vaccine (#1) 2024 , 11/09/2022, 01/09/2022, Additional history exists Falls Risk Assessment 06/30/2025 06/30/2024 DTaP,Tdap,and Td Vaccines (2 - Td or Tdap) 11/02/2030 11/02/2020 Pneumococcal Vaccine: 50+ Years Completed 07/10/2021 RSV Immunization Adult Patients Completed 11/09/2022 HIB Vaccines Aged Out No longer eligi ble based on patient's age to complete this topic HPV Vaccines Aged Out No longer eligi ble based on patient's age to complete this topic Hepatitis A Vaccines Aged Out No long er eligible based on patient's age to complete this topic Hepatitis B Vaccines Aged Out No long er eligible based on patient's age to complete this topic IPV Vaccines Aged Out No longer eligi ble based on patient's age to complete this topic MMR Vaccines Aged Out No longer eligi ble based on patient's age to complete this topic Meningococcal ACWY Vaccine Aged Out N o longer eligible based on patient's age to complete this topic Meningococcal B Vaccine Aged Out No l onger eligible based on patient's age to complete this topic RSV Immunization Patients Under 20 months Aged Out No longer eligible based on patient's age to complete this topic Varicella Vaccines Aged Out No longer eligible based on patient's age to complete this topic Procedures Procedure Name Priority Date/Time Associated Diagnosis Comments COLONOSCOPY Routine 06/30/2024 3:21 PM EDT Change in bowel movement BRBPR (bright red blood per rectum) Personal history of other colon polyps Mucus in stool EGD Routine 06/30/2024 3:21 PM EDT Morrison esophagus TISSUE EXAM Routine 06/30/2024 2:56 PM EDT Morrison esophagus Change in bowel movement BRBPR (bright red blood per rectum) Personal history of other colon polyps Mucus in stool EXTERNAL COLONOSCOPY REPORT Routine 06/03/2024 2:20 PM EDT CBC AND DIFFERENTIAL Routine 05/26/2024 Recent change in frequency of bowel movements Mucus in stool Rectal bleeding Right upper quadrant abdominal tenderness without rebound tenderness from Last 3 Months Results * COLONOSCOPY Anesthesia - MAC; [facility] ENDOSCOPY (06/30/2024 3:21 PM EDT) Anatomical Region Laterality Modality Endoscopy 06/30/2024 2:45 PM EDT Impressions 06/30/2024 3:14 PM EDT - Segmental mild inflammation was found in the distal rectum secondary to proctitis. Biopsied. - Diverticulosis in the sigmoid colon and in the descending colon. - One 20 mm polyp in the proximal ascending colon, removed piecemeal using a hot snare. Resected and retrieved. Clip (MR conditional) was placed. 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 - One 14 mm polyp in the transverse colon, removed with a hot snare. Resected and retrieved. - One 15 mm polyp at the splenic flexure, removed with a hot snare. Resected and retrieved. - One 14 mm polyp in the sigmoid colon, removed with a hot snare. Resected and retrieved. - The transverse colon and ascending colon are normal. Biopsied. Recommendation: - Await pathology results. - Repeat colonoscopy in 6 months for surveillance. Narrative 06/30/2024 3:14 PM EDT [facility] GI Patient Name: Александр Saba Procedure Date: 06/30/2024 2:45 PM Date of : 1945 Age: 78 Room: ROOM 15 Gender: Male Note Status: Finalized Attending MD: David Buenrostro MD, Procedure Date No Time: 06/30/2024 Procedure: Colonoscopy Indications: Chronic diarrhea, Hematochezia Providers: David Buenrostro MD Referring MD: David Buenrostro MD Medicines: Propofol per Anesthesia Complications: No immediate complications. Estimated Blood Loss: Estimated blood loss: none. Procedure: Pre-Anesthesia Assessment: - ASA Grade Assessment: III - A patient with severe systemic disease. After I obtained informed consent, the scope was passed under direct vision. Throughout the procedure, the patient's blood pressure, pulse, and oxygen saturations were monitored continuously.The Olympus Pediatric Colonoscope was introduced through the anus and advanced to the cecum, identified by appendiceal orifice and ileocecal valve. The colonoscopy was performed without difficulty. The patient tolerated the procedure well. The quality of the bowel preparation was adequate. Findings: The perianal and digital rectal examinations were normal. Segmental mild inflammation characterized by congestion (edema), erythema and granularity was found in the distal rectum. Biopsies were taken with a cold forceps for histology. Multiple diverticula were found in the sigmoid colon and descending colon. A 20 mm polyp was found in the proximal ascending colon. The polyp was sessile. The polyp was removed with a piecemeal technique using a hot snare. Resection and retrieval were complete. To prevent bleeding after the polypectomy, one hemostatic clip was successfully placed (MR conditional). 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 There was no bleeding at the end of the procedure. A 14 mm polyp was found in the transverse colon. The polyp was semi-pedunculated. The polyp was removed with a hot snare. Resection and retrieval were complete. A 15 mm polyp was found in the splenic flexure. The polyp was semi-pedunculated. The polyp was removed with a hot snare. Resection and retrieval were complete. A 14 mm polyp was found in the sigmoid colon. The polyp was pedunculated. The polyp was removed with a hot snare. Resection and retrieval were complete. The transverse colon and ascending colon appeared normal. Biopsies for histology were taken with a cold forceps from the right colon and transverse colon for evaluation of microscopic colitis. Procedure Code(s): --- Professional --- 93135, Colonoscopy, flexible; with removal of tumor(s), polyp(s), or other lesion(s) by snare technique [id number], 59, Colonoscopy, flexible; with biopsy, single or multiple Diagnosis Code(s): --- Professional --- K62.89, Other specified diseases of anus and rectum D12.2, Benign neoplasm of ascending colon D12.3, Benign neoplasm of transverse colon (hepatic flexure or splenic flexure) D12.5, Benign neoplasm of sigmoid colon K52.9, Noninfective gastroenteritis and colitis, unspecified K92.1, Melena (includes Hematochezia) K57.30, Diverticulosis of large intestine without perforation or abscess without bleeding CPT copyright 2020 [employer]. All rights reserved. The codes documented in this report are preliminary and upon medical record coder review may be revised to meet current compliance requirements. David Buenrostro MD 06/30/2024 3:14:12 PM This report has been signed electronically.David Buenrostro MD Number of Addenda: 0 Note Initiated On: 06/30/2024 2:45 PM Scope In: Scope Out: Endoscopy Department at [facility] - [address] [place] [phone] Procedure Note David Buenrostro MD - 06/30/2024 [facility] GI Patient Name: Александр Saba Procedure Date: 06/30/2024 2:45 PM Date of : 1945 Age: 78 Room: ROOM 15 Gender: Male Note Status: Finalized Attending MD: David Buenrostro MD, Procedure Date No Time: 06/30/2024 Procedure: Colonoscopy Indications: Chronic diarrhea, Hematochezia Providers: David Buenrostro MD Referring MD: David Buenrostro MD Medicines: Propofol per Anesthesia Complications: No immediate complications. Estimated Blood Loss: Estimated blood loss: none. Procedure: Pre-Anesthesia Assessment: - ASA Grade Assessment: III - A patient with severe systemic disease. After I obtained informed consent, the scope was passed under direct vision. Throughout theprocedure, the patient's blood pressure, pulse, and oxygen saturations were monitored continuously.The Olympus Pediatric Colonoscope was introduced through theanus and advanced to the cecum, identified byappendiceal orifice and ileocecal valve. The colonoscopy was performed without difficulty. The patient tolerated the procedure well. The quality of the bowel preparation was adequate. Findings: The perianal and digital rectal examinations were normal. Segmental mild inflammation characterized by congestion (edema), erythema and granularity wasfound in the distal rectum. Biopsies were taken with acold forceps for histology. Multiple diverticula were found in the sigmoidcolon and descending colon. A 20 mm polyp was found in the proximal ascending colon. The polyp was sessile. The polyp was removed with a piecemeal technique using a hot snare. Resection and retrieval were complete. To prevent bleeding after the polypectomy, one hemostatic clip was successfully placed (MR conditional). 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 There was nobleeding at the end of the procedure. A 14 mm polyp was found in the transverse colon.The polyp was semi-pedunculated. The polyp was removed with a hot snare. Resection and retrieval were complete. A 15 mm polyp was found in the splenic flexure. The polyp was semi-pedunculated. The polyp was removed with a hot snare. Resection and retrieval were complete. A 14 mm polyp was found in the sigmoid colon. The polyp was pedunculated. The polyp was removed witha hot snare. Resection and retrieval were complete. The transverse colon and ascending colon appeared normal. Biopsies for histology were taken with acold forceps from the right colon and transverse colonfor evaluation of microscopic colitis. Procedure Code(s): --- Professional --- 20370, Colonoscopy, flexible; with removal of tumor(s), polyp(s), or other lesion(s) by snare technique [id number], 59, Colonoscopy, flexible; with biopsy,single or multiple Diagnosis Code(s): --- Professional --- K62.89, Other specified diseases of anus andrectum D12.2, Benign neoplasm of ascending colon D12.3, Benign neoplasm of transverse colon (hepatic flexure or splenic flexure) D12.5, Benign neoplasm of sigmoid colon K52.9, Noninfective gastroenteritis and colitis, unspecified K92.1, Melena (includes Hematochezia) K57.30, Diverticulosis of large intestine without perforation or abscess without bleeding CPT copyright 2020 [employer]. All rights reserved. The codes documented in this report are preliminary and upon medical record coder reviewmay be revised to meet current compliance requirements. David Buenrostro MD 06/30/2024 3:14:12 PM This report has been signed electronically.David Buenrostro MD Number of Addenda: 0 Note Initiated On: 06/30/2024 2:45 PM Scope In: Scope Out: Endoscopy Department at [facility] - [address] [place] [phone] IMPRESSION: - Segmental mild inflammation was found in the distal rectum secondary to proctitis. Biopsied. - Diverticulosis in the sigmoid colon and in the descending colon. - One 20 mm polyp in the proximal ascending colon, removed piecemeal using a hot snare. Resected and retrieved. Clip (MR conditional) was placed. 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 - One 14 mm polyp in the transverse colon, removed with a hot snare. Resected and retrieved. - One 15 mm polyp at the splenic flexure, removedwith a hot snare. Resected and retrieved. - One 14 mm polyp in the sigmoid colon, removedwith a hot snare. Resected and retrieved. - The transverse colon and ascending colon arenormal. Biopsied. Recommendation: - Await pathology results. - Repeat colonoscopy in 6 months forsurveillance. 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 Biopsied. - Small hiatal hernia. - Normal examined duodenum. Recommendation: - Await pathology results. - Repeat upper endoscopy is not recommended. Narrative 06/30/2024 3:25 PM EDT [facility] GI Patient Name: Александр Saba Procedure Date: 06/30/2024 3:14 PM Date of : 1945 Age: 78 Room: ROOM 15 Gender: Male Note Status: Finalized Attending MD: David Buenrostro MD, Procedure Date No Time: 06/30/2024 Procedure: Upper GI endoscopy Indications: Surveillance for malignancy due to personal history of Morrison's esophagus Providers: David Buenrostro MD Referring MD: David Buenrostro MD Medicines: Propofol per Anesthesia Complications: No immediate complications. Estimated Blood Loss: Estimated blood loss: none. Procedure: Pre-Anesthesia Assessment: - ASA Grade Assessment: III - A patient with severe systemic disease. - ASA Grade Assessment: III - A patient with severe systemic disease. After obtaining informed consent, the endoscope was passed under direct vision. Throughout the procedure, the patient's blood pressure, pulse, and oxygen saturations were monitored continuously.The Olympus Gastroscope was introduced through the mouth, and advanced to the second part of duodenum. The upper GI endoscopy was accomplished without difficulty. The patient tolerated the procedure well. 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 The maximum longitudinal extent of these mucosal changes was 2 cm in length. Biopsies were taken with a cold forceps for histology. A small hiatal hernia was present. The exam of the stomach was otherwise normal. The examined duodenum was normal. Procedure Code(s): --- Professional --- 21692, Esophagogastroduodenoscopy, flexible, transoral; with biopsy, single or multiple Diagnosis Code(s): --- Professional --- K22.70, Morrison's esophagus without dysplasia K44.9, Diaphragmatic hernia without obstruction or gangrene CPT copyright 2020 [employer]. All rights reserved. The codes documented in this report are preliminary and upon medical record coder review may be revised to meet current compliance requirements. David Buenrostro MD 06/30/2024 3:24:49 PM This report has been signed electronically.David Buenrostro MD Number of Addenda: 0 Note Initiated On: 06/30/2024 3:14 PM Scope In: Scope Out: Endoscopy Department at [facility] - [address] [place] [phone] Procedure Note David Buenrostro MD - 06/30/2024 [facility] GI Patient Name: Александр Saba Procedure Date: 06/30/2024 3:14 PM Date of : 1945 Age: 78 Room: ROOM 15 Gender: Male Note Status: Finalized Attending MD: David Buenrostro MD, Procedure Date No Time: 06/30/2024 Procedure: Upper GI endoscopy Indications: Surveillance for malignancy due to personal historyof Morrison's esophagus Providers: David Buenrostro MD Referring MD: David Buenrostro MD Medicines: Propofol per Anesthesia Complications: No immediate complications. Estimated Blood Loss: Estimated blood loss: none. Procedure: Pre-Anesthesia Assessment: - ASA Grade Assessment: III - A patient with severe systemic disease. - ASA Grade Assessment: III - A patient with severe systemic disease. After obtaining informed consent, the endoscope was passed under direct vision. Throughout theprocedure, the patient's blood pressure, pulse, and oxygen saturations were monitored continuously.The Olympus Gastroscope was introduced through the mouth, and advanced to the second part of duodenum. The upperGI endoscopy was accomplished without difficulty. The patient tolerated the procedure well. Findings: There were esophageal mucosal changes consistentwith short-segment Morrison's esophagus present in thelower third of the esophagus. The maximum longitudinal extent of these mucosal changes was 2 cm in length. Biopsies were taken with a cold forceps forhistology. A small hiatal hernia was present. The exam of the stomach was otherwise normal. The examined duodenum was normal. Procedure Code(s): --- Professional --- 69875, Esophagogastroduodenoscopy, flexible, transoral; with biopsy, single or multiple Diagnosis Code(s): --- Professional --- K22.70, Morrison's esophagus without dysplasia K44.9, Diaphragmatic hernia without obstruction or gangrene CPT copyright 2020 [employer]. All rights reserved. The codes documented in this report are preliminary and upon medical record coder reviewmay be revised to meet current compliance requirements. 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 Biopsied. - Small hiatal hernia. - Normal examined duodenum. Recommendation: - Await pathology results. - Repeat upper endoscopy is not recommended. us David Buenrostro MD GI~PROCEDURE ORDERABLES Fin al Result * Tissue exam (06/30/2024 2:56 PM EDT) Final Diagnosis A.Transverse Colon, polyp: Tubular adenoma. B. Ascending Colon, polyp: Tubular adenoma. C. Colon, random biopsies: Benign colonic mucosa with no specific pathologic change. No colitis identified. D. Splenic flexure, polyp: Tubular adenoma. E. Sigmoid Colon, polyp: Tubular adenoma. F. Rectum, biopsies: Moderately active chronic proctitis with cryptitis, crypt abscess formation, lymphoplasmacyto sis, and architectural distortion. No granuloma or dysplasia identified. G. Esophagus, distal, biopsies: Morrison's esophagus. Negative for dysplasia. 07/02/2024 2:19 PM EDT [facility] HOSPITAL LAB Gross Description A. Large Intestine, Transverse Colon, polyp x1: Labeled trans colon polyp x 1 . Received in formalin are two irregular nuñez mucosal tissue fragments, each measuring approximately 0.4 cm in greatest dimension, which are wrapped in paper and submitted in toto in one cassette, two pieces, multiple levels on one slide. B. Large Intestine, Right/Ascending Colon, polyp x1: Labeled ascending colon polyp x 1 . Received in formalin are five irregular nuñez disrupted mucosal tissue fragments, ranging from less than 0.1 cm to 0.6 cm in greatest dimension, which are wrapped in paper and submitted in toto in one cassette, five pieces, multiple levels on one slide. Please note: The smallest fragment may not survive processing. C. Colon, random biopsies: Labeled colon random . Received in formalin are six irregular unñez mucosal tissue fragments, ranging from 0.1 cm to 0.6 cm in greatest dimension, which are wrapped in paper and submitted in toto in one cassette, six pieces, multiple levels on one slide. D. Large intestine, Splenic flexure, polyp x1: Labeled splenic flex polyp x 1 . Received in formalin is a 0.3 cm irregular nuñez mucosal tissue fragment which is wrapped in paper and submitted in toto in one cassette, one piece, multiple levels on one slide. E. Large Intestine, Sigmoid Colon, polyp x1: Labeled Sig colon polyp x 1 . Received in formalin is a 0.9 x 0.7 x 0.5 cm pink-red lobular mucosal polyp. The resection margin is inked black. The specimen is bisected, wrapped in paper, and entirely submitted in one cassette, two pieces, multiple levels on one slide. F. Large Intestine, Rectum, biopsies: Labeled LI rectum biopsies . Received in formalin are three irregular nuñez mucosal tissue fragments, ranging from 0.1 cm to 0.3 cm in greatest dimension, which are wrapped in paper and submitted in toto in one cassette, three pieces, multiple levels on one slide. G. Esophagus, distal biopsies: Labeled esophagus distal . Received in formalin are two irregular nuñez mucosal tissue fragments, each measuring approximately 0.2 cm in greatest dimension, which are wrapped in paper and submitted in toto in one cassette, two pieces, multiple levels on one slide. YAYA 07/02/2024 2:19 PM EDT [facility] Disclaimer Unless otherwise specified, all tissue is 10% NB formalin fixed and paraffin embedded. 07/02/2024 2:19 PM EDT [facility] Tissue Transverse colon structure / Unknown 06/30/2024 2:56 PM EDT 07/01/2024 8:53 AM EDT Tissue specimen (specimen) Ascending colon structure / Unknown 06/30/2024 2:59 PM EDT 07/01/2024 8:53 AM EDT Tissue specimen (specimen) Colon structure / Unknown 06/30/2024 3:03 PM EDT 07/01/2024 8:53 AM EDT Tissue specimen (specimen) Structure of left colic flexure / Unknown 06/30/2024 3:06 PM EDT 07/01/2024 8:53 AM EDT Tissue specimen (specimen) Sigmoid colon structure / Unknown 06/30/2024 3:19 PM EDT 07/01/2024 8:53 AM EDT Tissue specimen (specimen) Rectum structure / Unknown 06/30/2024 3:19 PM EDT 07/01/2024 8:53 AM EDT Tissue specimen (specimen) Esophageal structure / Unknown 06/30/2024 3:20 PM EDT 07/01/2024 8:53 AM EDT David Buenrostro MD LAB PATHOLOGY ORDERABLES Fi nal Result Performing Organization Address [facility]/ZIP Co de Phone Number [facility]) HOSP[facility] LAB [address] [place] [address], * External Colonoscopy Report (06/03/2024 2:20 PM EDT) Anatomical Region Laterality Modality Endoscopy Historical Provider GI~PROCEDURE ORDERABLES F inal Result * CBC and differential (05/26/2024) Blood Venous blood specimen / Unknown Mariama MARSHALL LAB BLOOD ORDERABLES Final R esult Performing Organization Address City/[facility]/ZIP Co de Phone Number EXTERNAL LAB (NON-INTERFACED) from Last 3 Months Insurance [employer] - [place] MEDICARE ADVANTAGE Care Teams 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
== END 2024-08-19 14:58 | disposition home or self-care (01) ==
LOC: HO.HUSH 13:37
PROVIDERS: PCP Internal Medicine Endocrinology, Diabetes & Metabolism; Visit Provider Urology
DX: E11.69 Type 2 diabetes mellitus with other specified complication (principal); N52.1 Erectile dysfunction due to diseases classified elsewhere; N39.0 Urinary tract infection, site not specified; R33.9 Retention of urine, unspecified
CPT/HCPCS: 99213; G2211